=== PATIENT | female | born 1990 ===

== ENCOUNTER 2023-07-17 11:53 | Inpatient (IN) | payer MEDICAID ==
[2023-07-17] MEDS ORDERED: Methylergonovine 0.2 MG/1 ML Amp IM PRN (12:36)
[2023-07-17] MEDS ORDERED: Ondansetron 4 MG/2 ML SDV IVPUSH PRN (12:36)
[2023-07-17] MEDS ORDERED: Lactated Ringers 1,000 ML IV ONE (12:36)
[2023-07-17] MEDS ORDERED: Carboprost Tromethamine 250 MCG/1 ML Amp IM PRN (12:36)
[2023-07-17] MEDS ORDERED: Sodium Chloride 0.9% 10 ML Syringe FLUSH PRN (12:36)
[2023-07-17] MEDS ORDERED: Acetaminophen 325 MG Tab PO PRN ×2 (12:36→23:37)
[2023-07-17] MEDS ORDERED: Lidocaine 1% 30 ML SDV INJECT ONE (12:36)
[2023-07-17] MEDS ORDERED: Misoprostol 400 MCG (4 X 100 MCG TAB) RECTAL PRN (12:36)
[2023-07-17] MEDS ORDERED: Tranexamic Acid 1,000 MG in Sodium Chloride 0.9% 100 ML IV PRN (12:36)
[2023-07-17] MEDS ORDERED: Lactated Ringers 1,000 ML IV SCH (12:45)
[2023-07-17] MEDS ORDERED: Oxytocin/Normal Saline 30 UNIT/500 ML BAG IV SCH (12:45)
[2023-07-17 12:56] LABS: HEMATOCRIT 36.7 % (37.0-47.0); HEMOGLOBIN 11.6 g/dL (12.0-16.0); MEAN CORPUSCULAR HEMOGLOBIN 26.1 pg (27.0-34.0); MEAN CORPUSCULAR HGB CONC 31.6 g/dL (33.0-35.0); MEAN CORPUSCULAR VOLUME 82.5 fL (80-100); RED BLOOD CELL COUNT 4.45 10^6/uL (4.2-5.4); WHITE BLOOD CELL COUNT,WBC 9.6 10^3/uL (5.0-10.0)
[2023-07-17] MEDS: Oxytocin/Normal Saline 30 UNIT/500 ML BAG IV SCH ×2 (13:16→23:40)
[2023-07-17] MEDS ORDERED: fentaNYL 100 MCG/2 ML SDV ONE (16:41)
[2023-07-17] MEDS ORDERED: Bupivacaine 0.25% 10 ML SDV ONE (16:41)
[2023-07-17] MEDS ORDERED: Phenylephrine HCl In 0.9% NaCl 1 MG/10 ML Syringe IVPUSH PRN (17:06)
[2023-07-17] MEDS ORDERED: ePHEDrine 50 MG/ML SDV IVPUSH PRN (17:06)
[2023-07-17] MEDS ORDERED: Ropivacaine 200 MG in Premix Bag 1 BAG EPIDUR SCH (17:15)
[2023-07-17] MEDS ORDERED: Witch Hazel Medicated Pads 100/Jar TOP PRN (23:37)
[2023-07-17] MEDS ORDERED: Simethicone 80 MG Tab.Chew PO PRN (23:37)
[2023-07-17] MEDS ORDERED: Benzocaine/Menthol 20%-0.5% Spray 78 GM Cannister TOP PRN (23:37)
[2023-07-17] MEDS ORDERED: ceFAZolin 2 GM Vial IVPUSH ONE (23:42)
[2023-07-17] MEDS ORDERED: oxyCODONE 5 MG Tab PO PRN (23:43)
[2023-07-18] MEDS: Ibuprofen 800 MG Tab PO PRN ×3 (01:47→19:34)
[2023-07-18] MEDS: Docusate Sodium 100 MG Cap PO PRN ×2 (08:36→19:34)
[2023-07-18] MEDS: Ferrous Sulfate 325 MG Tab PO SCH (08:36)
[2023-07-18] MEDS: Prenatal Multivitamin with Calcium/Folic Acid/Iron Tab PO SCH ×2 (08:36→08:37)
[2023-07-18] MEDS: Levothyroxine 50 MCG Tab PO SCH (09:29)
[2023-07-18 20:18] LABS: HEMATOCRIT 29.3 % (37.0-47.0); HEMOGLOBIN 9.1 g/dL (12.0-16.0); MEAN CORPUSCULAR HEMOGLOBIN 25.9 pg (27.0-34.0); MEAN CORPUSCULAR HGB CONC 31.1 g/dL (33.0-35.0); MEAN CORPUSCULAR VOLUME 83.2 fL (80-100); RED BLOOD CELL COUNT 3.52 10^6/uL (4.2-5.4); WHITE BLOOD CELL COUNT,WBC 11.6 10^3/uL (5.0-10.0)
[2023-07-19] MEDS: Prenatal Multivitamin with Calcium/Folic Acid/Iron Tab PO SCH (08:46)
[2023-07-19] MEDS: Docusate Sodium 100 MG Cap PO PRN (08:46)
[2023-07-19] MEDS: Ibuprofen 800 MG Tab PO PRN (08:46)
[2023-07-19] MEDS: Ferrous Sulfate 325 MG Tab PO SCH (08:46)
[2023-07-19] MEDS: Levothyroxine 50 MCG Tab PO SCH (10:32)
[2023-07-19] MEDS ORDERED: Measles, Mumps & Rubella Vaccine 0.5 ML SDV SUBCUT ONE (10:53)
[2023-07-19] MEDS ORDERED: fentaNYL 100 MCG/2 ML SDV IV ONE (14:59)
== END 2023-07-19 15:00 | disposition home or self-care (01) | DRG 806 ==
LOC: DL.OBCHECK 11:53 → DL.OB 12:30 → OBSVTOIN 22:45 → DL.OB 22:45
PROVIDERS: ADMIT Family Medicine; ATTEND Family Medicine
PROC: 10E0XZZ Delivery of Products of Conception, External Approach (ICD-10-PCS; principal; 2023-07-17)
PROC: 0KQM0ZZ Repair Perineum Muscle, Open Approach (ICD-10-PCS; 2023-07-17)
PROC: 3E033VJ Introduction of Other Hormone into Peripheral Vein, Percutaneous Approach (ICD-10-PCS; 2023-07-17)
PROC: 3E0R3BZ Introduction of Anesthetic Agent into Spinal Canal, Percutaneous Approach (ICD-10-PCS; 2023-07-17)
PROC: 00HU33Z Insertion of Infusion Device into Spinal Canal, Percutaneous Approach (ICD-10-PCS; 2023-07-17)
PROC: 3E0P7VZ Introduction of Hormone into Female Reproductive, Via Natural or Artificial Opening (ICD-10-PCS; 2023-07-17)
DX: O42.02 Full-term premature rupture of membranes, onset of labor within 24 hours of rupture (principal); O72.0 Third-stage hemorrhage; Z37.0 Single live birth; O72.2 Delayed and secondary postpartum hemorrhage; O70.1 Second degree perineal laceration during delivery; O71.82 Other specified trauma to perineum and vulva; O43.103 Malformation of placenta, unspecified, third trimester; O99.284 Endocrine, nutritional and metabolic diseases complicating childbirth; E03.9 Hypothyroidism, unspecified; O99.02 Anemia complicating childbirth; Z3A.39 39 weeks gestation of pregnancy
CPT/HCPCS: 01967; 36415; 51702; 59409; 84112; 85027; A9270-GY; J0690; J2210; J2405; J2590; J2795; J3010; J3490; J7120